=== PATIENT | female | born 1950 | race Caucasian/White ===

== ENCOUNTER 2021-03-30 10:35 | Emergency (ER) | payer MEDICARE ==
[~2021-03-30] VITALS: Ht 157.5 cm; Wt 52.7 kg
[2021-03-30] MEDS ORDERED: RHOP0.02 OD (10:45)
[2021-03-30] MEDS ORDERED: TUMS750C5 PO (10:45)
[2021-03-30] MEDS ORDERED: XALA0.007 OD (10:45)
[2021-03-30] MEDS ORDERED: ATEN25TA PO (10:45)
[2021-03-30] MEDS ORDERED: vitamin d PO (10:45)
[2021-03-30] MEDS ORDERED: ECOT81TA5 PO (10:45)
[2021-03-30 11:21] LABS: BASO % 0.2 % (0.0-1.0); EOS % 0.1 % (0.0-3.0); HEMATOCRIT 40.6 % (36.0-47.0); HEMOGLOBIN 13.6 g/dl (12.0-15.5); LYMPH # 0.5 10^3/uL (1.5-5.0); LYMPH % 4.7 % (24.0-44.0); MEAN CORPUSCULAR HGB CONC 33.5 g/dl (32.0-36.5); MEAN CORPUSCULAR VOLUME 86.6 fl (80.0-96.0); MONO # 0.3 10^3/uL (0.0-0.8); MONO % 2.8 % (2.0-8.0); NEUTROPHILS # 10.2 10^3/uL (1.5-8.5); NEUTROPHILS % 91.9 % (36.0-66.0); PLATELET COUNT, AUTOMATED 267 10^3/uL (150-450); RED BLOOD COUNT 4.69 10^6/uL (4.00-5.40); WHITE BLOOD COUNT 11.1 10^3/uL (4.0-10.0)
[2021-03-30 11:40] LABS: ALBUMIN 3.7 GM/DL (3.2-5.2); ALT/SGPT 20 U/L (12-78); BILIRUBIN,DIRECT < 0.1 MG/DL (0.0-0.2); BILIRUBIN,TOTAL 0.5 MG/DL (0.2-1.0); LIPASE 147 U/L (73-393); TOTAL PROTEIN 6.9 GM/DL (6.4-8.2)
[2021-03-30] MEDS ORDERED: NS 1,000 ML IV ONE (11:40)
[2021-03-30] MEDS ORDERED: ISOVUE-370 76% 100ML VIAL As Ordered ONE (12:12)
[2021-03-30 12:42] LABS: CK-MB VALUE MASS 3.8 NG/ML (<3.6); CPK CREATINE PHOSPHOKINASE 115 U/L (26-192); TROPONIN I < 0.02 NG/ML (< 0.10)
[2021-03-30 16:41] VITALS: BP 123/55
== END 2021-03-30 16:51 | disposition home or self-care (01) ==
LOC: M ED 10:35
DX: K56.600 Partial intestinal obstruction, unspecified as to cause (principal); K76.89 Other specified diseases of liver; R11.2 Nausea with vomiting, unspecified; K21.9 Gastro-esophageal reflux disease without esophagitis; Z90.722 Acquired absence of ovaries, bilateral; Z88.8 Allergy status to other drugs, medicaments and biological substances; Z79.899 Other long term (current) drug therapy
CPT/HCPCS: 74177; 80047; 80076; 81001; 82550; 82553; 83690; 84484; 85025; 93005; 96360; 99284; Q9967